=== PATIENT | female | born 1975 | race Caucasian/White ===

== ENCOUNTER 2023-06-07 20:16 | Emergency (ER) | payer OTHER, SELFPAY ==
[2023-06-07 20:56] VITALS: BP 121/67; PULSE 56; RESP 16; TEMP 36.6; O2SAT 100
--- NOTE | 2023-06-07 22:36 | ED.GENADULT ---
HPI - General Adult General Chief complaint: Wound/Laceration Stated complaint: cut right thumb Time Seen by Provider: 06/07/23 21:30 Source: patient Mode of arrival: ambulatory Limitations: no limitations History of Present Illness HPI narrative: This is a 47-year-old female who presents to the ED with chief complaint of a right thumb laceration that occurred just prior to arrival. Patient states she was in the kitchen and using a slicer in the kitchen and accidentally nicked the end of her right thumb. Reports it is located in the radial aspect of the distal thumb. Denies any further site of pain or injury. Denies numbness or weakness. Reports the bleeding was difficult to control. Related Data Allergies Allergy/AdvReac Type Severity Reaction Status Date / Time No Known Allergies Allergy Verified 06/07/23 22:50 Review of Systems Review of Systems: All systems as dictated in HPI Exam Narrative: GENERAL: Well-appearing, well-nourished, and in no acute distress. HEAD: Normocephalic, atraumatic. EYES: PERRLA and EOMI. ENT: Nares clear, no rhinorrhea or epistaxis. Mucous membranes moist. Oropharynx without tonsillar hypertrophy exudate or other lesions. NECK: Supple. No adenopathy or masses. CHEST: No respiratory distress. Clear to auscultation. No wheezes rales or rhonchi HEART: Regular rate and rhythm. No murmur heard. Normal peripheral pulses. ABDOMEN: Soft, nontender, nondistended, normal active bowel sounds. MSK: Normal range of motion. No edema. Neurovascular intact distally. SKIN: There is a 1 cm avulsion to the radial aspect of the distal right thumb. No nail involvement. Bleeding controlled. NEURO: Alert and oriented x3. No focal deficits. PSYCH: Normal mood and affect. Course Vital Signs Vital signs: Vital Signs Temperature 97.9 F 06/07/23 20:56 Pulse Rate 56 L 06/07/23 20:56 Respiratory Rate 16 06/07/23 20:56 Blood Pressure 121/67 06/07/23 20:56 Pulse Oximetry 100 06/07/23 20:56 Oxygen Delivery Room Air 06/07/23 20:56 Temperature 97.9 F 06/07/23 20:56 Pulse Rate 56 L 06/07/23 20:56 Respiratory Rate 16 06/07/23 20:56 Blood Pressure 121/67 07/31/23 20:56 Pulse Oximetry 100 06/07/23 20:56 Oxygen Delivery Room Air 06/07/23 20:56 Medical Decision Making MDM Narrative Medical decision making narrative: This is a 47-year-old female who presents to the ED with chief complaint of right thumb injury occurring just prior to arrival. Vitals are normal. Exam reveals a 1 cm avulsion injury to the right distal thumb. Bleeding controlled here. No nail involvement. Wound was well cleaned here in the ED. Pressure dressing given with a nonadherent pad. There is no closable wound on exam. She will be discharged in stable condition. Supportive measures for discussed and return precautions given. Vital Signs Vital Signs: Vital Signs Temperature 97.9 F 06/07/23 20:56 Pulse Rate 56 L 06/07/23 20:56 Respiratory Rate 16 06/07/23 20:56 Blood Pressure 121/67 06/07/23 20:56 Pulse Oximetry 100 06/07/23 20:56 Oxygen Delivery Room Air 06/07/23 20:56 Temperature 97.9 F 06/07/23 20:56 Pulse Rate 56 L 06/07/23 20:56 Respiratory Rate 16 06/07/23 20:56 Blood Pressure 121/67 06/07/23 20:56 Pulse Oximetry 100 06/07/23 20:56 Oxygen Delivery Room Air 06/07/23 20:56 Discharge Plan Discharge Clinical Impression: Avulsion of skin Patient Disposition: Home, Self-Care Condition: Stable Instructions: Antibiotic Form Additional Instructions: Your exam today shows a small avulsion of the right thumb. We have placed a pressure dressing. Please change this dressing daily. The skin will slowly grow back. Monitor for any signs of infection like spreading redness, swelling, drainage. If you have any new or worsening symptoms please return to the ER for further evaluation. Follow-up/Referrals: NON-NURSING STAFF,
[2023-06-07] MEDS: HYDROcodone/acetaminophen (*CRX) 5-325 MG TABLET 1 TAB PO (22:51)
[2023-06-07] MEDS: Please add drug allergy info to patient profile. 1 EACH XX (22:52)
--- NOTE | 2023-06-07 23:03 | PC.NURSE ---
Applied non-adharent gauze, 2x2 pressure dressing, 1inch gauze and secured with 1 inch coban.
== END 2023-06-07 23:10 | disposition home or self-care (01) ==
PROVIDERS: Emergency Provider Physician Assistant
DX: S61.011A Laceration without foreign body of right thumb without damage to nail, initial encounter (principal); W27.4XXA Contact with kitchen utensil, initial encounter; Y93.G1 Activity, food preparation and clean up
CPT/HCPCS: 99283; A9270